=== PATIENT | male | born 1995 | race Caucasian/White ===

== ENCOUNTER 2021-04-18 11:20 | Emergency (ER) | payer BC ==
[~2021-04-18] VITALS: Ht 182.9 cm; Wt 113.6 kg
[2021-04-18 11:57] VITALS: TEMP 98.7
[2021-04-18 12:48] LABS: BASO % 0.3 % (0.0-2.0); EOS % 0.4 % (0-4.0); GRAN % 74.4 % (42.2-75.2); HEMOGLOBIN 13.8 g/dl (13.5-18.0); LYMPH % 18.6 % (20.0-51.0); MEAN CELL VOLUME 79 fl (80.0-100.0); MEAN CORPUSCULAR HEMOGLOBIN 25 pg (27.0-31.0); MEAN CORPUSCULAR HGB CONC 31 g/dl (33.0-37.0); MONO # 0.6 (0.1-0.6); MONO % 5.7 % (1.7-9.3); PLATELET COUNT 322 K/mm3 (130-400); RED BLOOD COUNT 5.56 M/mm3 (4.20-5.60); REDCELL DISTRIBUTION WIDTH-CV 14.1 % (11.5-14.5)
[2021-04-18 12:59] LABS: ALANINE AMINOTRANSFERASE 94 U/L (4-49); ALBUMIN 4.9 gm/dL (3.5-5.0); ALKALINE PHOSPHATASE 89 U/L (50-136); ANION GAP 11 mmol/L (7-16); AST,SGOT 51 U/L (15-37); BILIRUBIN,TOTAL 0.7 mg/dL (0.0-1.0); BLOOD UREA NITROGEN 9 mg/dL (9-20); CALCIUM 9.3 mg/dL (8.4-10.2); CARBON DIOXIDE 24 mmol/L (22-30); CHLORIDE 104 mmol/L (98-107); CREATININE, serum 0.83 (0.66-1.25); GLUCOSE 154 mg/dL (74-106); POTASSIUM 3.7 mmol/L (3.4-5.0); SODIUM 140 mmol/L (137-145); TOTAL PROTEIN 7.9 gm/dL (6.4-8.2)
[2021-04-18 13:03] LABS: C-REACTIVE PROTEIN < 0.5 mg/dL (0.0-0.9)
[2021-04-18 13:20] LABS: TROPONIN-I < 0.012 ng/mL (0.000-0.035)
[2021-04-18] MEDS ORDERED: PREDNISONE10 MG PO (14:10)
[2021-04-18] MEDS ORDERED: NORCO 325 MG-51 TAB PO (14:10)
[2021-04-18 14:55] VITALS: BP 129/79; PULSE 93
[2021-04-19] MEDS ORDERED: TRELEGY ELLIPT1 EACH IH (11:31)
[2021-04-19] MEDS ORDERED: ALBUTEROL0.83 MG/ML IH (11:31)
[2021-04-19] MEDS ORDERED: LEXAPRO 5MG5 MG PO (11:31)
[2021-04-19] MEDS ORDERED: PRINIVIL10 MG PO (11:31)
[2021-04-23] MEDS ORDERED: DEPO-TESTOS100 MG/ML IM (08:16)
[2021-04-27] MEDS ORDERED: CELEBREX 200MG200 MG PO (08:21)
[2021-04-27] MEDS ORDERED: ROBAXIN 50500 MG/TAB PO (08:22)
[2021-04-27] MEDS ORDERED: FLEXERIL 1010 MG/TAB PO (08:22)
== END 2021-04-18 14:57 | disposition home or self-care (01) ==
LOC: COL.ER 11:20
PROVIDERS: Family Medicine
DX: R07.89 Other chest pain (principal); R09.1 Pleurisy; J45.909 Unspecified asthma, uncomplicated
CPT/HCPCS: J1100; J1885; J2270; J2405; J2550; J7030

== ENCOUNTER 2021-04-19 11:24 | Observation (INO) | payer BC ==
[~2021-04-19] VITALS: Ht 182.9 cm; Wt 113.6 kg
[~2021-04-19 11:24] MED LIST: NORCO 325 MG-51 TAB PO; PREDNISONE10 MG PO
[2021-04-19] MEDS ORDERED: LEXAPRO 5MG5 MG PO (11:31)
[2021-04-19] MEDS ORDERED: ALBUTEROL0.83 MG/ML IH (11:31)
[2021-04-19] MEDS ORDERED: PRINIVIL10 MG PO (11:31)
[2021-04-19] MEDS ORDERED: TRELEGY ELLIPT1 EACH IH (11:31)
[2021-04-19 12:31] LABS: ARTERIAL BLD GAS O2 SATURATION 95.1 % (92-100); ARTERIAL BLD GAS TCO2 CT 21.5; ARTERIAL BLOOD GAS BASE EXCESS -2.8 (-2-2); ARTERIAL BLOOD GAS HCO3 20.6 meq/L (22-26); ARTERIAL BLOOD GAS PCO2 31.9 mmHg (35-45); ARTERIAL BLOOD GAS PO2 73.5 mmHg (80-100); ARTERIAL BLOOD GAS pH 7.43 (7.35-7.45)
[2021-04-19 12:40] LABS: HEMATOCRIT 40.4 % (42.0-52.0); HEMOGLOBIN 12.8 g/dl (13.5-18.0); MEAN CELL VOLUME 79 fl (80.0-100.0); MEAN CORPUSCULAR HEMOGLOBIN 25 pg (27.0-31.0); MEAN CORPUSCULAR HGB CONC 32 g/dl (33.0-37.0); MEAN PLATELET VOLUME 9.2 fl (7.4-10.4); PLATELET COUNT 351 K/mm3 (130-400); REDCELL DISTRIBUTION WIDTH-CV 14.1 % (11.5-14.5)
[2021-04-19 12:49] LABS: ALBUMIN 4.4 gm/dL (3.5-5.0); BILIRUBIN,TOTAL 0.6 mg/dL (0.0-1.0); CALCIUM 9.5 mg/dL (8.4-10.2); CREATININE, serum 0.98 (0.66-1.25); POTASSIUM 4.4 mmol/L (3.4-5.0); TOTAL PROTEIN 7.4 gm/dL (6.4-8.2)
[2021-04-19 13:12] LABS: BAND 2 % (0-10); HYPOCHROMIA 1+; LYMPHOCYTE 4 % (20.0-51.0); NEUTROPHILS 91 % (42.0-75.2); PLATELET ESTIMATE NORMAL (NORMAL)
[2021-04-19 13:13] LABS: MICROCYTOSIS 1+
[2021-04-19 16:56] VITALS: BP 140/73; PULSE 113; TEMP 98.1
--- NOTE | 2021-04-19 18:06 | NUR ---
PT CAME TO FLOOR THIS EVENING FROM ED. DOING WELL. RESTING IN BED. TYLENOL ADMINISTERED FOR PAIN. NO NEEDS AT THIS TIME. CALL RON IN REACH.
[2021-04-19 21:47] VITALS: BP 127/47; PULSE 131; TEMP 98.1
[2021-04-19 21:53] VITALS: BP 113/76; PULSE 63; TEMP 97.6
[2021-04-20 00:31] VITALS: BP 147/62; PULSE 101; TEMP 98.5
[2021-04-20 04:18] VITALS: BP 129/66; PULSE 117; TEMP 98.7
--- NOTE | 2021-04-20 06:43 | NUR ---
Rested well this shift after receiving ambien. Denied pain/nausea/shortness of breath. States this morning that today is the best he has felt in over a year. Discussed ECHO this AM. Denies questions/concerns. Call light in reach. Will monitor.
[2021-04-20 07:24] VITALS: BP 138/88; PULSE 110; TEMP 98.5
--- NOTE | 2021-04-20 07:29 | NUR ---
Pt. progressing w/ plan of care. Pt. reporting pain and anxiety this AM. HR elevated at this moment. Pt. requesting toradol and medication for anxiety. Pt. 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 Will contact provided to inquire about an alternative medication for anxiety. Call light and belongings in reach.
[2021-04-20 07:54] LABS: BASO % 0.2 % (0.0-2.0); EOS % 0.1 % (0-4.0); GRAN # 10.7 (1.4-6.5); GRAN % 73.6 % (42.2-75.2); HEMOGLOBIN 12.3 g/dl (13.5-18.0); LYMPH # 2.7 (1.2-3.4); LYMPH % 18.7 % (20.0-51.0); MEAN CELL VOLUME 78 fl (80.0-100.0); MEAN CORPUSCULAR HEMOGLOBIN 25 pg (27.0-31.0); MEAN CORPUSCULAR HGB CONC 32 g/dl (33.0-37.0); MEAN PLATELET VOLUME 9.6 fl (7.4-10.4); MONO % 6.8 % (1.7-9.3); PLATELET COUNT 330 K/mm3 (130-400); RED BLOOD COUNT 5.03 M/mm3 (4.20-5.60); REDCELL DISTRIBUTION WIDTH-CV 14.2 % (11.5-14.5)
[2021-04-20 08:00] LABS: CALCIUM 8.7 mg/dL (8.4-10.2); CREATININE, serum 0.94 (0.66-1.25); POTASSIUM 3.7 mmol/L (3.4-5.0)
[2021-04-20 09:13] LABS: TOTAL IRON BINDING CAPACITY 385 ug/dL (261-462)
[2021-04-20 09:14] LABS: IRON,SERUM 20 ug/dL (35-150)
--- NOTE | 2021-04-20 09:46 | NUR ---
SW met with patient and , Zeenat, at b/s. Patient employed f/t IT for [employer]; lives with and 5 month old son in [place]. Patient has family, friends and support in the area. No DME's at this time; patient states he is fully independent w/ no anticipated needs at time of d/c but was admitted with chest pain and SOB. Patient's PCP is Yuri Miller. Patient interested in establishing DPOA and SW completed POA with patient and . *SW will continue to follow for d/c needs, if any.
--- NOTE | 2021-04-20 10:00 | NUR ---
Initial visit; Patient thanked [employer] Helper for looking in on him andkeeping him in her prayers.
[2021-04-20 10:47] LABS: COLLECTION METHOD CLEAN CATCH
[2021-04-20 10:57] LABS: MUCOUS Present /lpf; PH 6 (5-8); SQUAMOUS EPITHELIAL None Seen /hpf; URINE APPEARANCE Clear; URINE BACTERIA None Seen /hpf; URINE BILIRUBIN Negative (NEGATIVE); URINE BLOOD Negative (NEGATIVE); URINE COLOR Yellow; URINE GLUCOSE Negative (NEGATIVE); URINE KETONE Negative (NEGATIVE); URINE LEUKOCYTE ESTERASE Negative (NEGATIVE); URINE NITRATE Negative (NEGATIVE); URINE PROTEIN(semi-quant) Negative (NEGATIVE); URINE RBC 0-2 /hpf; URINE UROBILINOGEN Negative (NEGATIVE)
[2021-04-20] MEDS ORDERED: DOXYCYCLINE 10100 MG PO (12:29)
[2021-04-20] MEDS ORDERED: INDOCIN50 MG PO (12:30)
[2021-04-20] MEDS ORDERED: VENOFER IV (12:37)
[2021-04-20 12:43] VITALS: BP 137/86; PULSE 96; TEMP 98.6
--- NOTE | 2021-04-20 14:01 | NUR ---
The PA notified REBECCA that the patient is going to need to be set up in the [facility] for outpatient IV iron, starting on Friday. The patient has [employer]. REBECCA notified the manager digital ad operations for insurance auth. REBECCA contacted and faxed the patient's information and the IV iron order to [facility] in the [facility]. The patient was secured an appointment in the [facility] on Friday, 04/23 at 0800. REBECCA notified the community placement worker of the appointment. REBECCA notified the patient and his of the appointment. They were agreeable to the plan. No additional needs at this time.
--- NOTE | 2021-04-20 14:55 | NUR ---
Pt. progressing w/ plan of care. Pt. going to be discharged shortly. Iron infusion administered per order. Plan for pt. to get a work note for Friday off. Pt.'s at pt.'s side. Pt. reports his pain is present to his left side. Dr. Ivey was made aware this am, plan for pt. to go home on pain medication. Toradol administered prn, effect pending.
[2021-04-23] MEDS ORDERED: DEPO-TESTOS100 MG/ML IM (08:16)
[2021-04-27] MEDS ORDERED: CELEBREX 200MG200 MG PO (08:21)
[2021-04-27] MEDS ORDERED: FLEXERIL 1010 MG/TAB PO (08:22)
[2021-04-27] MEDS ORDERED: ROBAXIN 50500 MG/TAB PO (08:22)
== END 2021-04-20 14:00 | disposition home or self-care (01) ==
LOC: COL.ER 11:24 → MEDICAL 14:53
PROVIDERS: Family Medicine; Nurse Practitioner Family; Physician Assistant
DX: J96.01 Acute respiratory failure with hypoxia (principal); R09.1 Pleurisy; D72.829 Elevated white blood cell count, unspecified; D50.9 Iron deficiency anemia, unspecified; E66.9 Obesity, unspecified; R00.0 Tachycardia, unspecified; F41.9 Anxiety disorder, unspecified; I10 Essential (primary) hypertension; F32.9 Major depressive disorder, single episode, unspecified; Z87.891 Personal history of nicotine dependence; Z79.52 Long term (current) use of systemic steroids; Z86.16 Personal history of COVID-19; Z79.899 Other long term (current) drug therapy
CPT/HCPCS: G0378; J0696; J1170; J1650; J1756; J1790; J1815; J1885; J2060; J7120; Q9967

== ENCOUNTER 2021-04-30 08:00 | Outpatient (RCR) | payer BC ==
[2021-04-23 08:41] VITALS: BP 128/84; PULSE 89; TEMP 98.1
[2021-04-25 08:12] VITALS: BP 137/87; PULSE 88; TEMP 98.7
[2021-04-27 08:28] VITALS: BP 128/72; PULSE 87; TEMP 98.2
[~2021-04-30] VITALS: Ht 182.9 cm; Wt 115.0 kg
[~2021-04-30 08:00] MED LIST changes: +ALBUTEROL0.83 MG/ML IH; +CELEBREX 200MG200 MG PO; +DEPO-TESTOS100 MG/ML IM; +DOXYCYCLINE 10100 MG PO; +FLEXERIL 1010 MG/TAB PO; +INDOCIN50 MG PO; +LEXAPRO 5MG5 MG PO; +PRINIVIL10 MG PO; +ROBAXIN 50500 MG/TAB PO; +TRELEGY ELLIPT1 EACH IH; +VENOFER IV
[2021-04-30 08:35] VITALS: BP 127/81; PULSE 97; TEMP 98.2
== END 2021-04-30 08:36 | disposition home or self-care (01) ==
LOC: EUO 08:00
DX: D50.9 Iron deficiency anemia, unspecified (principal)
CPT/HCPCS: J1756

== ENCOUNTER 2021-06-18 09:56 | Emergency (ER) | payer BC ==
[~2021-06-18] VITALS: Ht 182.9 cm; Wt 113.6 kg
[2021-06-18 10:29] VITALS: TEMP 98.6
[2021-06-18 11:28] LABS: BASO # 0.1 K/mm3 (0.0-0.2); BASO % 0.5 % (0.0-2.0); EOS # 0.2 K/mm3 (0.0-0.7); EOS % 1.6 % (0-4.0); GRAN # 6.5 K/mm3 (1.4-6.5); GRAN % 68.4 % (42.2-75.2); HEMATOCRIT 47.4 % (42.0-52.0); HEMOGLOBIN 15.8 g/dl (13.5-18.0); LYMPH % 21.3 % (20.0-51.0); MEAN CELL VOLUME 77 fl (80.0-100.0); MEAN CORPUSCULAR HEMOGLOBIN 26 pg (27.0-31.0); MEAN CORPUSCULAR HGB CONC 33 g/dl (33.0-37.0); MEAN PLATELET VOLUME 8.5 fl (7.4-10.4); MONO # 0.7 K/mm3 (0.1-0.6); MONO % 7.7 % (1.7-9.3); PLATELET COUNT 285 K/mm3 (130-400); RED BLOOD COUNT 6.17 M/mm3 (4.20-5.60); REDCELL DISTRIBUTION WIDTH-CV 17.8 % (11.5-14.5)
[2021-06-18 11:44] LABS: ALANINE AMINOTRANSFERASE 78 U/L (0-55); ALBUMIN 4.3 gm/dL (3.5-5.0); ALKALINE PHOSPHATASE 96 U/L (40-150); ANION GAP 9 mmol/L (7-16); AST,SGOT 38 U/L (5-34); BILIRUBIN,TOTAL 0.8 mg/dL (0.2-1.2); BLOOD UREA NITROGEN 12 mg/dL (9-21); CALCIUM 9.5 mg/dL (8.4-10.2); CARBON DIOXIDE 23 mmol/L (22-29); CHLORIDE 107 mmol/L (98-107); CREATININE, serum 0.91 mg/dL (0.72-1.25); GLUCOSE 111 mg/dL (70-99); SODIUM 139 mmol/L (136-145); TOTAL PROTEIN 7.4 gm/dL (6.2-8.1)
[2021-06-18 11:56] LABS: TROPONIN-I < 0.010 ng/mL (0.00-0.033)
[2021-06-18] MEDS ORDERED: PEPCID 20MG TAB20 MG PO (11:59)
[2021-06-18 12:12] VITALS: BP 133/81; PULSE 112
[2021-06-18 13:01] LABS: TSH w REFLEX 0.449 uIU/mL (0.350-4.940)
== END 2021-06-18 12:31 | disposition home or self-care (01) ==
LOC: COL.ER 09:56
PROVIDERS: Emergency Medicine
DX: R07.89 Other chest pain (principal); D64.9 Anemia, unspecified; Z20.822 Contact with and (suspected) exposure to COVID-19; Z86.16 Personal history of COVID-19; Z79.899 Other long term (current) drug therapy
CPT/HCPCS: J1885

== ENCOUNTER 2021-07-19 17:24 | Emergency (ER) | payer BC ==
[~2021-07-19] VITALS: Ht 182.9 cm; Wt 113.6 kg
[~2021-07-19 17:24] MED LIST changes: +PEPCID 20MG TAB20 MG PO
[2021-07-19 17:40] VITALS: TEMP 98.4
[2021-07-19 18:30] VITALS: BP 128/80; PULSE 80
== END 2021-07-19 18:32 | disposition home or self-care (01) ==
LOC: COL.ER 17:24
DX: S93.402A Sprain of unspecified ligament of left ankle, initial encounter (principal); Z86.16 Personal history of COVID-19; X58.XXXA Exposure to other specified factors, initial encounter
CPT/HCPCS: J1885

== ENCOUNTER 2021-07-23 11:39 | Emergency (ER) | payer BC ==
[~2021-07-23] VITALS: Ht 182.9 cm; Wt 115.9 kg
[2021-07-23 12:19] VITALS: TEMP 98.1
[2021-07-23 15:46] LABS: BASO # 0.1 K/mm3 (0.0-0.2); BASO % 0.5 % (0.0-2.0); EOS # 0.1 K/mm3 (0.0-0.7); EOS % 0.6 % (0-4.0); GRAN # 8.9 K/mm3 (1.4-6.5); GRAN % 71.4 % (42.2-75.2); HEMATOCRIT 50.4 % (42.0-52.0); HEMOGLOBIN 17.2 g/dl (13.5-18.0); LYMPH # 2.6 K/mm3 (1.2-3.4); LYMPH % 20.9 % (20.0-51.0); MEAN CELL VOLUME 78 fl (80.0-100.0); MEAN CORPUSCULAR HEMOGLOBIN 27 pg (27.0-31.0); MEAN CORPUSCULAR HGB CONC 34 g/dl (33.0-37.0); MEAN PLATELET VOLUME 8.9 fl (7.4-10.4); MONO # 0.7 K/mm3 (0.1-0.6); MONO % 5.7 % (1.7-9.3); PLATELET COUNT 363 K/mm3 (130-400); RED BLOOD COUNT 6.49 M/mm3 (4.20-5.60); REDCELL DISTRIBUTION WIDTH-CV 16.5 % (11.5-14.5)
[2021-07-23 16:03] LABS: ALANINE AMINOTRANSFERASE 91 U/L (0-55); ALBUMIN 4.9 gm/dL (3.5-5.0); ALKALINE PHOSPHATASE 111 U/L (40-150); ANION GAP 12 mmol/L (7-16); AST,SGOT 42 U/L (5-34); BILIRUBIN,TOTAL 0.8 mg/dL (0.2-1.2); BLOOD UREA NITROGEN 15 mg/dL (9-21); CALCIUM 9.5 mg/dL (8.4-10.2); CARBON DIOXIDE 24 mmol/L (22-29); CHLORIDE 104 mmol/L (98-107); CREATININE, serum 0.91 mg/dL (0.72-1.25); GLUCOSE 82 mg/dL (70-99); LIPASE 48 U/L (8-78); POTASSIUM 3.7 mmol/L (3.5-4.5); SODIUM 140 mmol/L (136-145); TOTAL PROTEIN 7.9 gm/dL (6.2-8.1)
[2021-07-23 16:59] LABS: TROPONIN-I < 0.010 ng/mL (0.00-0.033)
[2021-07-23] MEDS ORDERED: NORCO 325 MG-51 TAB PO (19:36)
[2021-07-23 20:07] VITALS: BP 155/101; PULSE 124
== END 2021-07-23 20:07 | disposition home or self-care (01) ==
LOC: COL.ER 11:39
PROVIDERS: Physician Assistant
DX: R07.9 Chest pain, unspecified (principal); G89.29 Other chronic pain; I10 Essential (primary) hypertension; F32.A Depression, unspecified; E66.9 Obesity, unspecified; Z86.16 Personal history of COVID-19; Z68.34 Body mass index [BMI] 34.0-34.9, adult; Z79.899 Other long term (current) drug therapy
CPT/HCPCS: J1790; J7030

== ENCOUNTER 2023-06-11 10:20 | Emergency (ER) | payer BC ==
[~2023-06-11] VITALS: Ht 182.9 cm; Wt 113.6 kg
[~2023-06-11 10:20] MED LIST changes: +ULTRAM 50MG TAB50 MG PO
[2023-06-11 10:23] VITALS: TEMP 97.5
[2023-06-11] MEDS ORDERED: PERCOCET 325 MG1 TA2 PO (12:19)
[2023-06-11 12:39] VITALS: BP 113/78; PULSE 97
== END 2023-06-11 12:39 | disposition home or self-care (01) ==
LOC: COL.ER 10:20
DX: M54.17 Radiculopathy, lumbosacral region (principal); E66.9 Obesity, unspecified; Z68.33 Body mass index [BMI] 33.0-33.9, adult; Z98.890 Other specified postprocedural states
CPT/HCPCS: J1100; J2270; J3360

== ENCOUNTER 2023-07-10 16:39 | Emergency (ER) | payer BC ==
[~2023-07-10] VITALS: Ht 182.9 cm; Wt 113.6 kg
[~2023-07-10 16:39] MED LIST changes: +PERCOCET 325 MG1 TA2 PO
[2023-07-10 16:51] VITALS: TEMP 98.2
[2023-07-10 17:35] LABS: COLLECTION METHOD CLEAN CATCH
[2023-07-10 17:40] LABS: BASO % 0.3 % (0.0-2.0); EOS # 0.1 K/mm3 (0.0-0.7); EOS % 0.7 % (0.0-4.0); GRAN % 64.1 % (42.2-75.2); HEMATOCRIT 45.9 % (42.0-52.0); HEMOGLOBIN 15.9 g/dl (13.5-18.0); LYMPH # 2.6 K/mm3 (1.2-3.4); LYMPH % 27.8 % (20.0-51.0); MEAN CELL VOLUME 83 fl (80.0-100.0); MEAN CORPUSCULAR HEMOGLOBIN 29 pg (27-31); MEAN CORPUSCULAR HGB CONC 35 g/dl (33.0-37.0); MEAN PLATELET VOLUME 8.8 fl (7.4-10.4); MONO # 0.6 K/mm3 (0.1-0.6); MONO % 6.5 % (1.7-9.3); PLATELET COUNT 243 K/mm3 (130-400); RED BLOOD COUNT 5.55 M/mm3 (4.20-5.60); REDCELL DISTRIBUTION WIDTH-CV 13.4 % (11.5-14.5)
[2023-07-10 17:53] LABS: MUCOUS Present (NOT PRESENT); SQUAMOUS EPITHELIAL None Seen /hpf (0-10); URINE APPEARANCE Clear (CLEAR/HAZY); URINE BLOOD Negative (NEGATIVE); URINE COLOR Yellow (YELLOW); URINE GLUCOSE Negative (NEGATIVE); URINE KETONE Negative (NEGATIVE); URINE NITRATE Negative (NEGATIVE); URINE PROTEIN(semi-quant) Negative (NEGATIVE); URINE RBC None Seen /hpf (0-2); URINE UROBILINOGEN 0.2 E.U/dL (0.2-1.0)
[2023-07-10 17:54] LABS: URINE BACTERIA Rare /hpf (NONE SEEN)
[2023-07-10 18:00] LABS: ALBUMIN 4.5 gm/dL (3.5-5.0); BILIRUBIN,TOTAL 0.8 mg/dL (0.2-1.2); C-REACTIVE PROTEIN 0.28 mg/dL (0.00-0.50); CALCIUM 9.6 mg/dL (8.4-10.2); CREATININE, serum 0.86 mg/dL (0.72-1.25); POTASSIUM 3.7 mmol/L (3.5-4.5); TOTAL PROTEIN 7.6 gm/dL (6.2-8.1)
[2023-07-10 20:04] VITALS: BP 131/76; PULSE 97
== END 2023-07-10 20:04 | disposition home or self-care (01) ==
LOC: COL.ER 16:39
PROVIDERS: Nurse Practitioner
DX: R10.31 Right lower quadrant pain (principal); R11.2 Nausea with vomiting, unspecified; F17.210 Nicotine dependence, cigarettes, uncomplicated; Z90.49 Acquired absence of other specified parts of digestive tract; Z86.16 Personal history of COVID-19
CPT/HCPCS: J2270; J2405; J7030; Q9967

== ENCOUNTER → 2023-08-28 | Outpatient (CLI) | payer BC | LOC: COL.RAD 08:30 | DX: Z01.89 Encounter for other specified special examinations (principal); M25.78 Osteophyte, vertebrae; Z98.890 Other specified postprocedural states ==

== ENCOUNTER 2024-03-03 12:28 | Emergency (ER) | payer BC ==
[~2024-03-03] VITALS: Ht 182.9 cm; Wt 113.6 kg
[~2024-03-03 12:28] MED LIST changes: +ABILIFY5 MG PO; +CYMBALTA 60MG60 MG PO; +INSULIN GL100 UNIT/2 SQ; +LYRICA225 MG PO; +OZEMPIC1 MG/0.71 SQ; +PERCOCET 325 MG1 TAB PO; +PYRIDIUM 100MG100 MG PO; +ROBAXIN 75750 MG/TAB PO; +TOPROL XL100 MG PO; +VISTARIL 2525 MG/CAP PO
[2024-03-03 12:31] VITALS: TEMP 97.7
[2024-03-03 15:16] LABS: BASO % 0.2 % (0.0-2.0); EOS # 0.1 K/mm3 (0.0-0.7); GRAN # 5.8 K/mm3 (1.4-6.5); GRAN % 69.1 % (42.2-75.2); HEMATOCRIT 45.3 % (42.0-52.0); HEMOGLOBIN 15.4 g/dl (13.5-18.0); LYMPH # 1.9 K/mm3 (1.2-3.4); LYMPH % 22.4 % (20.0-51.0); MEAN CELL VOLUME 82 fl (80.0-100.0); MEAN CORPUSCULAR HEMOGLOBIN 28 pg (27-31); MEAN CORPUSCULAR HGB CONC 34 g/dl (33.0-37.0); MONO # 0.6 K/mm3 (0.1-0.6); MONO % 6.7 % (1.7-9.3); PLATELET COUNT 244 K/mm3 (130-400); RED BLOOD COUNT 5.56 M/mm3 (4.20-5.60); REDCELL DISTRIBUTION WIDTH-CV 13.4 % (11.5-14.5)
[2024-03-03 15:35] LABS: ALANINE AMINOTRANSFERASE 103 U/L (0-55); ALBUMIN 4.2 g/dL (3.5-5.0); ALKALINE PHOSPHATASE 113 U/L (40-150); ANION GAP 10 mmol/L (7-16); AST,SGOT 53 U/L (5-34); BILIRUBIN,TOTAL 0.6 mg/dL (0.2-1.2); BLOOD UREA NITROGEN 11 mg/dL (9-21); CALCIUM 9.3 mg/dL (8.4-10.2); CHLORIDE 107 mEq/L (98-107); CREATININE, serum 0.87 mg/dL (0.72-1.25); GLUCOSE 175 mg/dL (70-99); SODIUM 138 mEq/L (136-145)
[2024-03-03 15:41] LABS: TROPONIN-I < 0.010 ng/mL (0.00-0.033)
[2024-03-03 16:10] VITALS: BP 121/86; PULSE 93
== END 2024-03-03 16:10 | disposition home or self-care (01) ==
LOC: COL.ER 12:28
PROVIDERS: Physician Assistant
DX: R07.9 Chest pain, unspecified (principal); R00.0 Tachycardia, unspecified; F17.210 Nicotine dependence, cigarettes, uncomplicated

== ENCOUNTER 2024-03-23 10:55 | Emergency (ER) | payer BC ==
[~2024-03-23] VITALS: Ht 182.9 cm; Wt 113.6 kg
[2024-03-23 11:03] VITALS: TEMP 97.9
[2024-03-23] MEDS ORDERED: Ketorolac 15 MG/ML VIAL IV ONE (13:30)
[2024-03-23 13:33] LABS: BASO % 0.4 % (0.0-2.0); EOS # 0.1 K/mm3 (0.0-0.7); EOS % 0.9 % (0.0-4.0); GRAN # 5.8 K/mm3 (1.4-6.5); GRAN % 62.6 % (42.2-75.2); HEMOGLOBIN 16.2 g/dl (13.5-18.0); LYMPH # 2.5 K/mm3 (1.2-3.4); LYMPH % 26.7 % (20.0-51.0); MEAN CELL VOLUME 80 fl (80.0-100.0); MEAN CORPUSCULAR HEMOGLOBIN 27 pg (27-31); MEAN CORPUSCULAR HGB CONC 34 g/dl (33.0-37.0); MONO # 0.8 K/mm3 (0.1-0.6); MONO % 8.6 % (1.7-9.3); PLATELET COUNT 266 K/mm3 (130-400); RED BLOOD COUNT 5.97 M/mm3 (4.20-5.60); REDCELL DISTRIBUTION WIDTH-CV 13.7 % (11.5-14.5)
[2024-03-23 13:57] LABS: ALANINE AMINOTRANSFERASE 98 U/L (0-55); ALBUMIN 4.5 g/dL (3.5-5.0); ALKALINE PHOSPHATASE 108 U/L (40-150); ANION GAP 12 mmol/L (7-16); AST,SGOT 53 U/L (5-34); BLOOD UREA NITROGEN 12 mg/dL (9-21); CALCIUM 9.7 mg/dL (8.4-10.2); CHLORIDE 105 mEq/L (98-107); CREATININE, serum 0.86 mg/dL (0.72-1.25); GLUCOSE 70 mg/dL (70-99); SODIUM 139 mEq/L (136-145); TOTAL PROTEIN 7.5 g/dl (6.2-8.1)
[2024-03-23 14:07] LABS: TROPONIN-I < 0.010 ng/mL (0.00-0.033)
[2024-03-23] MEDS ORDERED: dexAMETHasone 10 MG/ML VIAL IV ONE (14:30)
[2024-03-23 14:38] VITALS: BP 126/82; PULSE 85
[2024-03-23] MEDS ORDERED: Metoprolol Tartrate 5 MG/5 ML VIAL IV ONE (14:45)
[2024-03-23] MEDS ORDERED: PREDNISONE20 MG PO (14:48)
[2024-03-23] MEDS ORDERED: diphenhydrAMINE 50 MG/ML 1 ML VIAL IV ONE (15:03)
== END 2024-03-23 15:06 | disposition home or self-care (01) ==
LOC: COL.ER 10:55
PROVIDERS: Emergency Medicine
DX: R09.1 Pleurisy (principal); F17.210 Nicotine dependence, cigarettes, uncomplicated
CPT/HCPCS: J1100; J1200; J1885

== ENCOUNTER 2024-05-31 07:32 | Outpatient (CLI) | payer BC ==
[2024-05-31] VITALS (7 sets, daily range): BP systolic 120–127; BP diastolic 80–86; PULSE 81–100; TEMP 98.1
[~2024-05-31] VITALS: Ht 182.9 cm; Wt 111.4 kg
[~2024-05-31 07:32] MED LIST changes: +PREDNISONE20 MG PO
[2024-05-31] MEDS ORDERED: ZESTRIL 5MG5 MG PO (07:40)
[2024-05-31] MEDS ORDERED: Iohexol 180 - 10 ML VIAL IV ONE (08:43)
[2024-05-31] MEDS ORDERED: REGLAN 10MG10 MG/TAB PO (23:51)
== END 2024-05-31 10:08 | disposition home or self-care (01) ==
LOC: COL.RAD 07:32 → EUO 07:32 → COL.RAD 10:08
DX: M47.816 Spondylosis without myelopathy or radiculopathy, lumbar region (principal); M48.061 Spinal stenosis, lumbar region without neurogenic claudication; Z98.1 Arthrodesis status
CPT/HCPCS: Q9965

== ENCOUNTER 2024-05-31 20:35 | Emergency (ER) | payer BC ==
[~2024-05-31] VITALS: Ht 182.9 cm; Wt 113.6 kg
[~2024-05-31 20:35] MED LIST changes: +ZESTRIL 5MG5 MG PO
[2024-05-31 20:40] VITALS: TEMP 98.3
[2024-05-31] MEDS ORDERED: diphenhydrAMINE 50 MG/ML 1 ML VIAL IV ONE (22:15)
[2024-05-31] MEDS ORDERED: LR 1,000 ML IV ONE (22:15)
[2024-05-31 22:49] LABS: COLLECTION METHOD CLEAN CATCH
[2024-05-31 22:52] LABS: BASO % 0.3 % (0.0-2.0); EOS # 0.1 K/mm3 (0.0-0.7); EOS % 0.8 % (0.0-4.0); GRAN # 7.2 K/mm3 (1.4-6.5); GRAN % 79.4 % (42.2-75.2); HEMATOCRIT 43.8 % (42.0-52.0); HEMOGLOBIN 15.7 g/dl (13.5-18.0); LYMPH # 1.3 K/mm3 (1.2-3.4); MEAN CELL VOLUME 81 fl (80.0-100.0); MEAN CORPUSCULAR HEMOGLOBIN 29 pg (27-31); MEAN CORPUSCULAR HGB CONC 36 g/dl (33.0-37.0); MEAN PLATELET VOLUME 8.7 fl (7.4-10.4); MONO # 0.5 K/mm3 (0.1-0.6); MONO % 5.1 % (1.7-9.3); PLATELET COUNT 240 K/mm3 (130-400); RED BLOOD COUNT 5.43 M/mm3 (4.20-5.60)
[2024-05-31 22:53] LABS: PH 6.5 (5.0-8.5); URINE APPEARANCE CLOUDY (CLEAR/HAZY); URINE BLOOD NEGATIVE (NEGATIVE); URINE COLOR YELLOW (YELLOW); URINE GLUCOSE NEGATIVE (NEGATIVE); URINE KETONE NEGATIVE (NEGATIVE); URINE NITRATE NEGATIVE (NEGATIVE); URINE PROTEIN(semi-quant) NEGATIVE (NEGATIVE)
[2024-05-31 23:10] LABS: ALBUMIN 4.3 g/dL (3.5-5.0); BILIRUBIN,TOTAL 0.8 mg/dL (0.2-1.2); CALCIUM 9.9 mg/dL (8.4-10.2); CREATININE, serum 0.86 mg/dL (0.72-1.25); POTASSIUM 3.9 mEq/L (3.5-4.5); TOTAL PROTEIN 7.2 g/dl (6.2-8.1)
[2024-05-31] MEDS ORDERED: REGLAN 10MG10 MG/TAB PO (23:51)
[2024-06-01 00:13] VITALS: BP 140/84; PULSE 84
== END 2024-06-01 00:13 | disposition home or self-care (01) ==
LOC: COL.ER 20:35
PROVIDERS: Emergency Medicine
DX: G97.1 Other reaction to spinal and lumbar puncture (principal); Z87.891 Personal history of nicotine dependence
CPT/HCPCS: J0780; J1200; J7120

== ENCOUNTER 2024-06-02 17:11 | Emergency (ER) | payer BC ==
[~2024-06-02] VITALS: Ht 182.9 cm; Wt 113.6 kg
[~2024-06-02 17:11] MED LIST changes: +REGLAN 10MG10 MG/TAB PO
[2024-06-02 17:26] VITALS: TEMP 98.4
[2024-06-02] MEDS ORDERED: Midazolam 2 MG/2 ML VIAL ONE ×2 (18:08→18:09)
[2024-06-02] MEDS ORDERED: fentaNYL 50 MCG/ML 2 ML VIAL ONE (18:09)
[2024-06-02 20:03] VITALS: BP 125/83; PULSE 107
== END 2024-06-02 20:03 | disposition home or self-care (01) ==
LOC: COL.ER 17:11
DX: R51.9 Headache, unspecified (principal)
CPT/HCPCS: J2250; J3010

== ENCOUNTER 2024-06-04 13:58 | Emergency (ER) | payer BC ==
[~2024-06-04] VITALS: Ht 182.9 cm; Wt 113.6 kg
[2024-06-04 14:29] VITALS: TEMP 98.6
[2024-06-04] MEDS ORDERED: droPERidol 2.5 MG/ML 2 ML VIAL IV ONE (18:45)
[2024-06-04] MEDS ORDERED: Acetamin/Butalbital/Caffeine 325-50-40 MG TAB PO ONE (18:45)
[2024-06-04] MEDS ORDERED: NS 1,000 ML IV ONE (18:45)
[2024-06-04 18:59] LABS: BASO % 0.2 % (0.0-2.0); EOS # 0.1 K/mm3 (0.0-0.7); EOS % 0.7 % (0.0-4.0); GRAN # 9.9 K/mm3 (1.4-6.5); GRAN % 80.1 % (42.2-75.2); HEMATOCRIT 46.6 % (42.0-52.0); HEMOGLOBIN 16.4 g/dl (13.5-18.0); LYMPH # 1.6 K/mm3 (1.2-3.4); MEAN CELL VOLUME 82 fl (80.0-100.0); MEAN CORPUSCULAR HEMOGLOBIN 29 pg (27-31); MEAN CORPUSCULAR HGB CONC 35 g/dl (33.0-37.0); MEAN PLATELET VOLUME 8.5 fl (7.4-10.4); MONO # 0.7 K/mm3 (0.1-0.6); MONO % 5.5 % (1.7-9.3); PLATELET COUNT 265 K/mm3 (130-400); REDCELL DISTRIBUTION WIDTH-CV 13.7 % (11.5-14.5)
[2024-06-04 19:18] LABS: ALBUMIN 4.4 g/dL (3.5-5.0); BILIRUBIN,TOTAL 1.3 mg/dL (0.2-1.2); CALCIUM 9.9 mg/dL (8.4-10.2); CREATININE, serum 0.83 mg/dL (0.72-1.25); POTASSIUM 3.9 mEq/L (3.5-4.5); TOTAL PROTEIN 7.7 g/dl (6.2-8.1)
[2024-06-04] MEDS ORDERED: FIORICET 325 MG1 TA1 PO (19:39)
[2024-06-04] MEDS ORDERED: ZOFRAN ODT4 MG PO (19:40)
[2024-06-04 19:45] VITALS: BP 122/83; PULSE 88
== END 2024-06-04 19:45 | disposition home or self-care (01) ==
LOC: COL.ER 13:58
PROVIDERS: Physician Assistant
DX: G97.1 Other reaction to spinal and lumbar puncture (principal)
CPT/HCPCS: J1790; J7030